=== PATIENT | male | born 1960 | race Caucasian/White ===

== ENCOUNTER 2021-10-06 11:28 | Emergency (ER) | payer OTHER, SELFPAY ==
[2021-10-06 11:41] VITALS: BP 157/94; PULSE 75; RESP 18; TEMP 37.1; O2SAT 93; BMI 41.3
--- NOTE | 2021-10-06 12:06 | XRR_ITS ---
PROCEDURE INFORMATION: Exam: XR Right Wrist Exam date and time: 10/06/2021 12:06 PM Age: 61 years old Clinical indication: Pain; Wrist; Right; Additional info: R wrist pain x 3 days TECHNIQUE: Imaging protocol: XR Right wrist. Views: 3 or more views. COMPARISON: No relevant prior studies available. FINDINGS: Bones/joints: Normal. Soft tissues: Normal. XR/XR wrist RT min 3V* [id number] IMPRESSION: No acute findings.
--- NOTE | 2021-10-06 12:26 | ED_ITS ---
HPI - Extremity Problem General: Chief complaint: Extremity Problem,Nontraumatic Stated complaint: right hand injury Time Seen by Provider: 10/06/21 11:49 Source: patient Mode of arrival: ambulatory Limitations: no limitations History of Present Illness: HPI Narrative: 61-year-old male presents to the ER today for right hand pain and difficulty with range of motion. Patient reports this has been going on for about 5 days or so but has had periods off and on of this for a while now. Patient reports he is having difficulty closing his hand into a fist and is also having pain at the base of the thumb. 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 Patient denies any known injury 5 days ago that caused this to worsen. Patient is not taking anything fo r his symptoms at this time. Patient does report some numbness but denies tingling. Patient denies headache, fever, chills, chest pain, shortness of breath, nausea, vomiting, diarrhea, constipation. MD Complaint: extremity pain Onset (ago): day(s) Pain Consistency: intermittent Location: right Severity scale (1-10): 5 Quality: aching Radiation: none Relieving factors: nothing Exacerbating factors: range of motion Associated symptoms: Reports other (Numbness) Review of Systems General: Reports: 10 or more systems reviewed and unremarkable except in HPI and below Physical Exam Const: COMMON NORMALS: no acute distress, average body habitus, patient oriented x3 and alert GENERAL APPEARANCE: cooperative and comfortable HENMT: COMMON NORMALS: normocephalic, external ears normal and Normal external nose present HEAD & SCALP: normocephalic NOSE: Normal external nose present EXTERNAL EAR: Yes external ears normal Eye: COMMON NORMALS: conjunctivae normal CONJUNCTIVA: Yes conjunctivae normal Resp: COMMON NORMALS: normal respiratory effort EFFORT & INSPECTION: Yes able to speak in complete sentences Cardio: COMMON NORMALS: regular rate and regular rhythm RATE: regular rate RHYTHM: regular rhythm Extremity: RIGHT UPPER EXTREMITY: Yes hand & digits Right hand and digits: Yes inspection (Right thenar atrophy noted ), Yes palpation (Normal), Yes ROM exam (Decreased range of motion of the fingers), Yes neurovascular exam (Numbness noted to the thumb and index finger.) and Yes tendon exam (Normal) Neuro: COMMON NORMALS: patient oriented x3, moves all extremities and gait normal SENSORIUM/ORIENTATION: Yes alert Psych: COMMON NORMALS: mental status grossly normal, Normal thought process present and cooperative THOUGHT PROCESS: Normal thought process present Skin: COMMON NORMALS: no rashes or lesions noted and no wounds GENERAL SKIN EXAM: no rashes or lesions noted Course ED course: Patient presents to the ER today for right hand pain and numbness that has been worsening for the last 5 days. Patient has no known injury. Patient reports this is been going on off and on for quite some time. Patient reports a history of carpal tunnel but that was many years ago. Patient has never been tested for carpal tunnel at this time. Patient has not done anything for symptoms at home. We will get an x-ray however based on physical exam and history I feel this is likely carpal tunnel syndrome. Discussed home care and symptomatic treatment with patient if findings are negative for acute fracture. Vital Signs: Vital signs: Vital Signs Temperature 98.8 F 10/06/21 11:41 Pulse Rate 75 10/06/21 11:41 Respiratory Rate 18 10/06/21 11:41 Blood Pressure 157/94 10/06/21 11:41 Pulse Oximetry 93 10/06/21 11:41 Critical Care Time Critical Care Time: Critical Care Time: No MDM - Extremity (Nontraumatic) MDM Narrative: Medical decision making narrative: 61-year-old male presents to the ER today for right hand pain and weakness. This has been going on intermittently off and on for quite some time. Patient denies any known injury. On exam, patient appears to have decreased muscle tone in the right thenar compartment. This is consistent with a carpal tunnel syndrome. Based on symptoms and history, this is likely. Imaging is negative for acute issues. Discussed with patient the recommended conservative therapy for carpal tunnel syndrome is bracing. Recommended wrist brace at night to be worn at this time. Anti-inflammatories recommended. Follow-up with PCP in 10 to 14 days if no improvement. Return to the ER with new or worsening symptoms. Patient verbalized understanding and is in agreement with the treatment plan. Imaging Data^: Xray Ortho: Radiologist's impression: [address] [address] XRay Report Signed Patient: Perry Carver Unit #: [id number] : 1960 Age/Sex: 61 / M ADM Date: 10/06/21 Loc: ER Room/Bed: Attending Dr: Ordering Provider/Ordering MD: Carey Valencia Date of Service: 10/06/21 Procedure(s): XR wrist RT min 3V* [id number] Accession Number(s): [id number] Report Number: [id number] PROCEDURE INFORMATION: Exam: XR Right Wrist Exam date and time: 10/06/2021 12:06 PM Age: 61 years old Clinical indication: Pain; Wrist; Right; Additional info: R wrist pain x 3 days TECHNIQUE: Imaging protocol: XR Right wrist. Views: 3 or more views. COMPARISON: No relevant prior studies available. FINDINGS: Bones/joints: Normal. Soft tissues: Normal. XR/XR wrist RT min 3V* [id number] IMPRESSION: No acute findings. Dictated By: Brain Molina Signed By: Brain Molina Signed Date/Time: 10/06/21 1238 DD/ 1206 Discharge Plan Discharge Patient Disposition: Home Clinical Impression: Acute carpal tunnel syndrome of right wrist Condition: Stable Prescriptions: New naproxen 500 mg tablet 500 mg PO BID Qty: 28 RF: 0 Discharge Orders: Discharge ED (Routine); Ordered 10/06/21 Ordered By: Carey Valencia Discharge Diet: Usual diet Discharge Activity: Resume usual activity Patient Instructions: Carpal Tunnel Syndrome, Opioid Safety Activity Restrictions/Additional Instructions: Take naproxen as prescribed. Wear Velcro wrist braces as discussed at night. Follow-up with PCP in 10 to 14 days. Return to the ER with new or worsening sy mptoms. 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
[2021-10-06 13:56] VITALS: BP 155/92; PULSE 73; RESP 18; TEMP 37.1; O2SAT 94
== END 2021-10-06 13:08 | disposition home or self-care (01) ==
PROVIDERS: Emergency Provider Physician Assistant
DX: G56.01 Carpal tunnel syndrome, right upper limb (principal)
CPT/HCPCS: 73110; 99282